=== PATIENT | male | born 1995 | race Hispanic/Latino ===

== ENCOUNTER 2020-01-14 13:10 | Emergency (ER) | payer OTHER ==
[2020-01-14] MEDS ORDERED: SODIUM CHLORIDE 0.9% 1000 ML 1,000 ML IV ONE (13:45)
--- NOTE | 2020-01-14 13:49 | Emergency Department Report ---
HPI - General Time Seen by Provider: 01/14/20 13:44 - HPI HPI: 24-year-old male presents to the emergency department via EMS with complaint of methamphetamine and heroin abuse. Patient was apparently wandering around [place] trying to find his way back home. His phone had 1 and therefore he was unable to use his GPS for call his significant other. The patient admits to IV injection of methamphetamine and also uses heroin. He did methamphetamines earlier today but last used heroin last night and thinks that he is going into withdrawal. Patient says that he has very dehydrated. He generally uses his phone to pay for items at convenience stores and therefore was unable to get something to drink. The patient says that he walked up to 2 individuals complaining about his phone being and his dehydration/thirst. They called 911 and the patient was sitting in front of a hair salon with PD when EMS arrived. An IV was placed in route but no medications given. The patient says that he has a history of hepatitis C and thinks that he has hyperthyroidism. ED Review of Systems ROS: Stated complaint: DRUG INJESTION Other details as noted in HPI Comment: All other systems reviewed and negative Constitutional: denies: chills, fever Eyes: denies: eye pain, vision change ENT: denies: ear pain, throat pain Respiratory: denies: cough, shortness of breath Cardiovascular: denies: chest pain, palpitations Endocrine: increased thirst Gastrointestinal: denies: abdominal pain, vomiting Genitourinary: denies: dysuria, discharge Musculoskeletal: denies: back pain, joint swelling Skin: denies: rash, lesions Neurological: denies: headache, weakness Physical Exam - Physical Exam Physical Exam: GENERAL: The patient is well-developed well-nourished. HENT: Normocephalic. Atraumatic. Patient has moist mucous membranes. EYES: Extraocular motions are intact. NECK: Supple. Trachea is midline. CHEST/LUNGS: Clear to auscultation. There is no respiratory distress noted. HEART/CARDIOVASCULAR: Regular. There is mild tachycardia. There is no murmur. ABDOMEN: Abdomen is soft, nontender. Patient has normal bowel sounds. There is no abdominal distention. SKIN: Skin is warm and dry. NEURO: The patient is awake, alert, and oriented. The patient is cooperative. The patient has no focal neurologic deficits. Normal speech. Cranial nerves II through XII grossly intact. Patient is constantly in motion. MUSCULOSKELETAL: There is no tenderness or deformity. There is no limitation range of motion. ED Medical Decision Making - Lab Data Result diagrams: 01/14/20 13:51 01/14/20 13:51 - EKG Data -: EKG Interpreted by Me EKG shows normal: sinus rhythm, axis, intervals, QRS complexes, ST-T waves Rate: tachycardia (120 bpm) - EKG Data Interpretation: other (Sinus tachycardia at [address] elevation NH) - Medical Decision Making This patient presents to the emergency department by EMS from a [facility] with a complaint of dehydration after using methamphetamines and recently using heroin. Patient is constantly in motion but says that he has a history of some type of leg tremors and he is unable to stop moving. Otherwise, the patient is awake, alert, oriented, AAO x3. He is otherwise calm and appropriate. He denies any suicidal or homicidal ideations or any hallucinations. An IV was placed and he was given some IV fluid resuscitation. Patient's labs shows a mild leukocytosis of 15,000, slight elevation in the AST and total bili, and an elevated CK level of about 700. Patient's tachycardia does greatly improved, if not resolved, if the patient stays still, which does not happen often. Patient did receive some IV fluid resuscitation and has been drinking water but has not yet left any urine sample for urinalysis and/or UDS. Patient is asking multiple times for discharge to home. While I feel that the patient would benefit from further IV fluid resuscitation and evaluation of his urinalysis for his level of dehydration and the UDS, the patient is awake and oriented, calm and appropriate, and has normal decision-making capacity. Therefore, despite understanding the risks, the patient has signed out AGAINST MEDICAL ADVICE. He does understand that he can return to the emergency department at any time for further evaluation or treatment, or with any acute distress. Critical Care Time: No Critical care attestation.: If time is entered above; I have spent that time in minutes in the direct care of this critically ill patient, excluding procedure time. ED Disposition Clinical Impression: Dehydration, Methamphetamine abuse, Heroin dependence Disposition: DC-07 LEFT AGAINST MED ADVICE Is pt being admited?: No Condition: Stable Instructions: Dehydration (ED), Narcotic Abuse (ED), Methamphetamine Abuse (ED) Additional Instructions: Please avoid any further illicit drug use. Return to the emergency department if you change your mind about further evaluation and treatment, or with any acute distress. Forms: AMA Form Time of Disposition: 16:27
[2020-01-14 14:25] LABS: Basophils % (Auto) 0.3 % (0.0-1.8); Eosinophils % (Auto) 0.3 % (0.0-4.3); Hematocrit 48.6 % (35.5-45.6); Hemoglobin 16.6 gm/dl (11.8-15.2); Lymphocytes # (Auto) 2.3 K/mm3 (1.2-5.4); Lymphocytes % (Auto) 14.7 % (13.4-35.0); Mean Corpuscular HGB Conc 34 % (32-34); Mean Corpuscular Volume 88 fl (84-94); Monocytes # (Auto) 1.5 K/mm3 (0.0-0.8); Monocytes % (Auto) 9.4 % (0.0-7.3); Platelet Count 264 K/mm3 (140-440); Red Blood Count 5.53 M/mm3 (3.65-5.03); Red Cell Distribution Width 12.9 % (13.2-15.2)
[2020-01-14 14:31] LABS: Alanine Aminotransferase 54 units/L (7-56); Albumin 4.9 g/dL (3.9-5); BUN/Creatinine Ratio 13; Blood Urea Nitrogen 15 mg/dL (9-20); Calcium 10.1 mg/dL (8.4-10.2); Hemolysis Index 20
[2020-01-14 17:54] VITALS: BP 131/90
== END 2020-01-14 16:50 | disposition left against medical advice (07) ==
LOC: ED 13:10
DX: E86.0 Dehydration (principal); F15.10 Other stimulant abuse, uncomplicated; F11.20 Opioid dependence, uncomplicated
CPT/HCPCS: 36415; 80053; 82550; 84443; 85025; 93005; 96360; 99285; J7030; 80320; G0480

== ENCOUNTER 2020-01-14 17:39 | Emergency (ER) | payer SELFPAY | END 2020-01-14 18:20 | disposition left against medical advice (07) | LOC: ED 17:39 | DX: E86.0 Dehydration (principal); Z53.21 Procedure and treatment not carried out due to patient leaving prior to being seen by health care provider ==

== ENCOUNTER 2020-01-15 00:11 | Emergency (ER) | payer SELFPAY ==
[2020-01-15] MEDS ORDERED: LORazepam 2 MG/ML VIAL IM ONE (01:02)
[2020-01-15] MEDS ORDERED: ZIPRASIDONE MESYLATE 20 MG VIAL IM ONE ×2 (01:07→01:16)
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
[2020-01-15 01:38] LABS: Bilirubin,Urine NEG (Negative); Blood,Urine MOD (Negative); Color,Urine Amber (Yellow); Hyaline Casts,Urine 1 /LPF; Mucus,Urine FEW /HPF
[2020-01-15 01:42] LABS: Amphetamine Screen,Urine PRESUMPTIVE POSITIVE; Benzodiazepines Screen,Urine PRESUMPTIVE POSITIVE; Cannabinoid Screen,Urine PRESUMPTIVE POSITIVE; Opiate Screen,Urine PRESUMPTIVE POSITIVE
[2020-01-15 01:43] LABS: Cocaine Screen,Urine PRESUMPTIVE NEGATIVE; Methadone Screen,Urine PRESUMPTIVE NEGATIVE
[2020-01-15 01:47] LABS: Basophils # (Auto) 0.1 K/mm3 (0.0-0.1); Basophils % (Auto) 0.5 % (0.0-1.8); Eosinophils # (Auto) 0.1 K/mm3 (0.0-0.4); Eosinophils % (Auto) 0.3 % (0.0-4.3); Hematocrit 45.8 % (35.5-45.6); Hemoglobin 15.9 gm/dl (11.8-15.2); Lymphocytes % (Auto) 17.7 % (13.4-35.0); Mean Corpuscular HGB Conc 35 % (32-34); Mean Corpuscular Volume 87 fl (84-94); Monocytes # (Auto) 1.6 K/mm3 (0.0-0.8); Monocytes % (Auto) 9.3 % (0.0-7.3); Platelet Count 252 K/mm3 (140-440); Red Blood Count 5.29 M/mm3 (3.65-5.03); Red Cell Distribution Width 12.7 % (13.2-15.2)
[2020-01-15] MEDS ORDERED: LIDOCAINE-MPF (1%) 10 MG/1 ML VIAL 5 ML INFILTRATI ONE (01:53)
[2020-01-15] MEDS ORDERED: AZITHROMYCIN 250 MG TAB PO ONE (01:53)
[2020-01-15 02:06] LABS: BUN/Creatinine Ratio 17; Blood Urea Nitrogen 17 mg/dL (9-20); Calcium 9.7 mg/dL (8.4-10.2); Hemolysis Index 9
[2020-01-15] MEDS ORDERED: SODIUM CHLORIDE 0.9% 1000 ML 1,000 ML IV ONE ×2 (03:09→04:45)
[2020-01-15] MEDS ORDERED: ONDANSETRON 4 MG/2 ML INJ IV ONE (04:54)
--- NOTE | 2020-01-15 05:33 | XRay Report ---
CHEST 1 VIEW 0520 INDICATION / CLINICAL INFORMATION: leukocystosis, ams COMPARISON: None available. FINDINGS: SUPPORT DEVICES: None HEART / MEDIASTINUM: No significant abnormality. LUNGS / PLEURA: No significant pulmonary or pleural abnormality. No pneumothorax. ADDITIONAL FINDINGS: No significant additional findings. IMPRESSION: No significant acute abnormality Signer Name: Herberth Weston MD Signed: 01/15/2020 5:29 AM Workstation Name: [id number]
[2020-01-15 15:45] VITALS: BP 111/60
== END 2020-01-15 15:44 ==
LOC: ED 00:11 → EEVIPCON 00:11 → ED 15:44
DX: E86.0 Dehydration (principal); N34.2 Other urethritis; F15.10 Other stimulant abuse, uncomplicated; F14.10 Cocaine abuse, uncomplicated; Z79.899 Other long term (current) drug therapy
CPT/HCPCS: 36415; 71045; 80048; 80307; 81001; 82550; 85025; 87086; 93005; 96361; 96372; 96374; 99285; J0696; J2060; J2405; J3486; J7030; 80320; G0480